=== PATIENT | female | born 1935 | race Caucasian/White ===

== ENCOUNTER → 2019-09-11 | Outpatient (CLI) | payer OTHER ==
[~2019-09-11] MED LIST: EVISTA PO; FLOMAX PO; LISINOPRIL40 MG PO; OXYBUTYNIN 5 MG5 M1 PO; PRAVACHOL40 MG PO
== END ==
LOC: M.RAD 11:00
PROVIDERS: ATTEND Internal Medicine
DX: M81.0 Age-related osteoporosis without current pathological fracture (principal); I35.0 Nonrheumatic aortic (valve) stenosis; I10 Essential (primary) hypertension; Z79.899 Other long term (current) drug therapy

== ENCOUNTER 2020-09-10 16:41 | Inpatient (IN) | payer OTHER ==
[~2020-09-10] VITALS: Ht 177.8 cm; Wt 103.7 kg
--- NOTE | ~2020-09-10 | EMS ---
[facility] [address] [place] [address] EMS Patient Care Report Name: JULIA LOVE Room: [place] [address] ADM IN [facility]#: [id number] Admission: 09/10/20 Attend Phys: Tere Clark Discharge: Date of : 37 Report #: [id number] THIS REPORT FOR: //name// Report Transmitted: 09/10/2020 16:52 EMS Care Summary [facility] Incident [id number] @ 09/10/2020 15:49 Incident Location [address] [place] [address] Patient JULIA LOVE Female, 84 Years 1935 Patient Address [address] [place] [address] Patient History Hypertension (HTN),Pacemaker/AICD, Patient Allergies Penicillin allergy,Bactrim, Chief Complaint Patient has no direct complaint Disposition Transported No Lights/[place] [facility] Reason Unknown Problem/Person Down Transported To [facility] Narrative Dispatched to address noted for an unknown problem. [facility] where en route and on scene at time noted. Arrived and found the family friends on the scene. They called 911 after finding the patient laying on the floor near the kitchen. Patient was alert and [facility] [address] [place] [address] EMS Patient Care Report Name: JULIA LOVE Room: [address] IN [facility]#: [id number] Admission: 09/10/20 Attend Phys: Tere Clark Discharge: Date of : 37 Report #: [id number] appeared oriented. She stated that she had been vomiting yesterday and not feeling well. Today she stated she bent over and then tripped and fell to the floor. Patient denied hitting her head or losing consciousness. Patient denied blood thinner use as well and did not have any obvious injuries noted. Patient felt cold and had urine and watery fecal matter noted on her clothes all the way to her shoulders. Patient stated she was only on the ground for 20 minutes but it appeared to have been longer. Patient agreed to treatment and transport and was moved to the stretcher via jarod line mover. Patient did not have any complaints at this time but appeared too weak to walk. Once in the ambulance, vitals where taken at time noted. 12 lead ECG obtained and IV was attempted. [facility] was chosen for care. Patients skin was now warming up and it could have been due to the air conditioning unit on the floor near the patient. While en route, no major complaints or changes where noted. Vitals where taken at time noted. Radio report given at time noted. Arrived and took patient to room 18. Patient was moved to bed and RN was given verbal report. RN signed for patient and patient signed for self. END REPORT EMT-P Jose Elias Jett Initial Vitals @16:05P: 98,R: 16,BP: 144/99,GCS: 15,Glucose: 96,SpO2: 97,Revised Trauma: 12, @16:30P: 98,R: 16,BP: 151/100,GCS: 15,SpO2: 97,Revised Trauma: 12, Assessments @16:21MENTAL:Person Oriented,Time Oriented,Place Oriented,Event Oriented,SKIN:Cold,HEENT:Head/Face: No Abnormalities,LUNG SOUNDS:General: No Abnormalities,ABDOMEN:General: No Abnormalities,PELVIS//GI:Incontinence,EXTREMITIES:Left Arm: No Abnormalities,Right Arm: No Abnormalities,Left Leg: No Abnormalities,Right Leg: No Abnormalities,PULSE:NEURO:No Abnormalities, Impression Generalized Weakness Procedures @16:16 cc (20 ga) Site: Antecubital-LeftResponse: UnchangedFailed Timeline 15:49,Call Received 15:49,[place] [address] EMS Patient Care Report Name: JULIA LOVE Room: [address] IN [facility]#: [id number] Admission: 09/10/20 Attend Phys: Tere Clark Discharge: Date of : 37 Report #: [id number] 15:52,En Route 15:54,Initial Responder On Scene 15:54,On Scene 15:55,At Patient 16:05,BP: 144/99 M,PULSE: 98,RR: 16 R,SPO2: 97 Ox,ETCO2: ,B,PAIN: ,GCS: 15, 16:16,Depart Scene 16:16, cc 20 ga Site: Antecubital-Left,Response: UnchangedFailed, 16:30,BP: 151/100 M,PULSE: 98,RR: 16 R,SPO2: 97 Ox,ETCO2: ,BG: ,PAIN: ,GCS: 15, 16:39,At Destination 16:45,Transfer Patient 16:52,Call Closed 17:16,In District Disclaimer v1.1 Copyright 2020 [employer] This EMS Care Summary contains data elements from the applicable legal record (which may be displayed differently). It is designed to provide pertinent information for the following purposes: continuity of care, clinical quality, and state data reporting. The complete legal record is available to ED staff and administrators of the receiving hospital in [employer] Patient Tracker. All data is provided "as is."
[2020-09-10 16:46] VITALS: BP 149/132
[2020-09-10 17:12] LABS: HEMATOCRIT 49.4 % (37.0-47.0); HEMOGLOBIN 17.1 gm/dL (12.0-15.0); MCH 31.2 pg (26.0-34.0); MCHC 34.6 g/dL (28.0-37.0); MPV 8.5 fl. (7.2-11.1); NUCLEATED RBCS 0 /100WBC; PLATELET COUNT* 178 thou/uL (150-400); RBC 5.49 mil/uL (4.20-5.00); RDW-CV 14.1 % (10.5-14.5); WBC 12.5 thou/uL (4.0-11.0)
[2020-09-10 17:34] LABS: CALCIUM 9.6 mg/dL (8.5-10.1); CREATININE 0.8 mg/dL (0.6-1.3); POTASSIUM 3.3 mmol/L (3.5-5.1)
[2020-09-10 17:39] LABS: ABSOLUTE LYMPHOCYTES 1.4 thou/uL (0.8-5.3); ABSOLUTE MONOCYTES 0.3 thou/uL (0.0-1.2); ABSOLUTE NEUTROPHILS 10.9 thou/uL (1.6-8.1); ATYPICAL LYMPHS 2 %; PLATELET ESTIMATE ADEQUATE
[2020-09-10 17:47] LABS: ALBUMIN 3.7 g/dL (3.4-5.0); TOTAL BILIRUBIN 1.2 mg/dL (<0.1-1.0); TOTAL PROTEIN 7.7 g/dL (6.4-8.2)
--- NOTE | 2020-09-10 18:04 | NUR ---
PT GIVEN DINNER TRAY AT THIS TIME.
[2020-09-10 20:12] VITALS: BP 129/93
[2020-09-10 21:00] VITALS: BP 118/78
[2020-09-10 22:48] LABS: URINE BILIRUBIN NEGATIVE (Negative); URINE BLOOD 1+ (Negative); URINE CLARITY CLEAR; URINE COLOR YELLOW; URINE GLUCOSE-RANDOM NEGATIVE (Negative); URINE LEUKOCYTES-REFLEX NEGATIVE (Negative); URINE NITRITE-REFLEX NEGATIVE (Negative); URINE PROTEIN 1+ (Negative); URINE SPECIFIC GRAVITY >= 1.030 (1.005-1.030); URINE UROBILINOGEN 0.2 E.U./dl (0.2-1.0)
[2020-09-10 22:52] LABS: URINE KETONES 3+ (Negative)
[2020-09-10 22:59] LABS: ACETEST (KETONE CONFIRMATORY) Moderate (Negative)
[2020-09-10 23:22] LABS: HYALINE CASTS 0-3 Few /LPF (None Seen); SQUAMOUS 0-3 Few /LPF (0-3); URINE RBC 3-10 Few /HPF (0-2); URINE WBC-REFLEX 0-5 Rare /HPF (0-5)
[2020-09-10 23:23] LABS: BACTERIA-REFLEX 1-9 Few /HPF (None Seen); CRYSTALS None Seen /LPF (None Seen)
[2020-09-10 23:57] VITALS: BP 96/60
[2020-09-11 03:47] VITALS: BP 105/67
[2020-09-11 05:40] LABS: CALCIUM 8.9 mg/dL (8.5-10.1); POTASSIUM 3.7 mmol/L (3.5-5.1)
[2020-09-11 06:18] LABS: ABSOLUTE MONOCYTES 0.7 thou/uL (0.0-1.2); ABSOLUTE NEUTROPHILS 8.1 thou/uL (1.6-8.1); BASOPHILS 0.2 %; HEMATOCRIT 44.1 % (37.0-47.0); HEMOGLOBIN 15.3 gm/dL (12.0-15.0); LYMPHOCYTES 9.9 %; MCH 31.1 pg (26.0-34.0); MCHC 34.6 g/dL (28.0-37.0); MCV 89.9 fL (80.0-100.0); MONOCYTES 7.4 %; NUCLEATED RBCS 0 /100WBC; PLATELET COUNT* 184 thou/uL (150-400); POLYS 82.5 %; RBC 4.91 mil/uL (4.20-5.00); RDW-CV 14.1 % (10.5-14.5); WBC 9.8 thou/uL (4.0-11.0)
[2020-09-11 08:00] VITALS: BP 116/54
--- NOTE | 2020-09-11 09:40 | NUR ---
patient currently in chair, talking to oncologist.
[2020-09-11 12:00] VITALS: BP 84/54
--- NOTE | 2020-09-11 12:18 | NUR ---
patient resting in room, BP was low per tech, doctor ordered 1 L bolus. Patient asymptomatic. Will continue to monitor.
[2020-09-11 13:30] VITALS: BP 133/69
[2020-09-11 15:37] VITALS: BP 95/60
--- NOTE | 2020-09-11 19:57 | NUR ---
Report given to shift boss nurse. bus driver/monitor on, RA, resting in bed with all belongings and call light within reach. Meds given per MAY.
[2020-09-11 20:00] VITALS: BP 104/56
[2020-09-12] VITALS (7 sets, daily range): BP systolic 86–131; BP diastolic 42–89
[2020-09-12 10:23] LABS: HEMATOCRIT 39.7 % (37.0-47.0); HEMOGLOBIN 13.7 gm/dL (12.0-15.0); MCH 31.4 pg (26.0-34.0); MCHC 34.6 g/dL (28.0-37.0); MCV 90.7 fL (80.0-100.0); MPV 8.6 fl. (7.2-11.1); RBC 4.38 mil/uL (4.20-5.00); RDW-CV 14.7 % (10.5-14.5)
[2020-09-12 10:37] LABS: CALCIUM 8.4 mg/dL (8.5-10.1); CREATININE 1.1 mg/dL (0.6-1.3); POTASSIUM 3.6 mmol/L (3.5-5.1)
--- NOTE | 2020-09-12 11:44 | EKG ---
[place] [address] ELECTROCARDIOGRAM REPORT Name: JULIA LOVE Room: [address] ADM IN M.R.#: [id number] Admission: 09/10/20 Attend Phys: Adolfo Valentine Discharge: Date of : 37 Date of Service: 09/10/20 174 Report #: [id number] THIS REPORT FOR: //name// [facility] ED Test Date: 2020-09-10 Test Time: 17:42:17 Pat Name: JULIA LOVE Department: Room: [facility] Gender: F Betting Clerk: JAMES : 1935 Requested By: Luis Manuel Gunter Order Number: [id number] MD: Parviz Abreu Measurements Intervals [place] Rate: 101 P: 197 UT: 157 QRS: -66 QRSD: 163 T: 116 QT: 447 QTc: 580 Interpretive Statements Atrial sensing with ventricular pacing No further analysis attempted due to paced rhythm Compared to ECG 08/02/2009 12:03:06 Ventricular pacing now present Electronically Signed On 09-12-2020 11:43:44 CDT by Parviz Abreu [email or web address] <ELECTRONICALLY SIGNED> By: Parviz Abreu MD, FAC 09/12/20 1143 1742 1742 Parviz Abreu MD, [facility] /EPI
--- NOTE | 2020-09-12 16:32 | NUR ---
Orthostatic vitals taken this am. laying - BP - 78/38, P - 83 sitting - BP - 86/48, P - 107 standing - BP - 61/41, P - 107
--- NOTE | 2020-09-12 19:09 | NUR ---
Patient resting in room in chair, with call light and personal belongings within reach. Unable to get new IV access after 3 tries. IV fluids on hold for now. Patient states no pain at this time. Report given to maintenance supervisor 2nd shift nurse.
[2020-09-13] VITALS (8 sets, daily range): BP systolic 99–129; BP diastolic 42–73
--- NOTE | 2020-09-13 05:52 | NUR ---
PT SLEPT MOST OF SHIFT. ASSESSMENT DOCUMENTED. MEDS GIVEN PER E-MAR. IV PATENT. NO REPORTS OF PAIN. NAUSEA MEDS GIVEN PER E-MAR WITH RELIEF. FALL PRECAUTIONS IN PLACE. PT ABLE TO MAKE NEEDS KNOWN. WILL CONTINUE WITH PLAN OF CARE.
--- NOTE | 2020-09-13 10:42 | EKG ---
[place] [address] ELECTROCARDIOGRAM REPORT Name: JULIA LOVE Room: [address] ADM IN M.R.#: [id number] Admission: 09/10/20 Attend Phys: Adolfo Valentine Discharge: Date of : 37 Date of Service: 09/11/20 0640 Report #: [id number] THIS REPORT FOR: //name// [facility] Test Date: 2020-09-11 Test Time: 06:40:00 Pat Name: JULIA LOVE Department: Room: [address] Gender: F Event Designer: JOSE : 1935 Requested By: Jimenez Pollock Order Number: [id number] Reading MD: El Anne Measurements Intervals [place] Rate: 97 P: 184 HI: 165 QRS: -56 QRSD: 151 T: 132 QT: 417 QTc: 530 Interpretive Statements Ventricular-paced rhythm No further analysis attempted due to paced rhythm Compared to ECG 09/10/2020 17:42:17 No significant changes Electronically Signed On 09-13-2020 10:42:34 CDT by El Anne [email or web address] <ELECTRONICALLY SIGNED> By: El Anne MD, [facility] 09/13/20 1042 0640 0640 El Anne MD, [facility] /EPI
--- NOTE | 2020-09-13 12:34 | NUR ---
CM ASSESSMENT: PT A&O. PT NORMALLY INDEPENDENT WITH ADL'S ACTIVE AND DRIVES. PT RESIDES AT HOME ALONE. PT USES 0 DME, BUT OWNS A WALKER AND CANE. PT HAS 0 HX OF HH. PT HAS PAST HX OF SNF 'MANY YEARS AGO'. PT HAS PAST HX OF OUTPATIENT P.T. AT [facility] IN [place]. PT MAY BENEFIT FROM HH AT D/C AND PT MAY BE READY TO D/C TOMORROW. CM TO [facility]. CM WILL REMAIN AVAILABLE TO ASSIST AND FOLLOW NEEDED.
--- NOTE | 2020-09-13 18:33 | CON ---
[facility] [address] [place] [address] CONSULTATION Name: JULIA LOVE Room: [address] IN M.R.#: [id number] Admission: 09/10/20 Attend Phys: Tere Clark Discharge: Date of : 37 Report #: [id number] THIS REPORT FOR: cc: Eugene Kingsley MD, David L. MD Liston, Michael J. MD [facility] ~ DOC #: [id number] cc: Rachel Deluca NP, MD Parviz Alaniz MD CARDIOLOGY CONSULTATION INDICATION: Elevated troponin. HISTORY OF PRESENT ILLNESS: The patient is a very pleasant 84-year-old white female with history of transcutaneous aortic valve replacement in 2014 for severe aortic stenosis. At that time, the patient had placement of a dual chamber pacemaker for complete heart block. Catheterization prior to TAVR showed no obstructive coronary artery disease. The patient has been followed on a regular basis through the Cardiology Clinic at since that time. The patient reports falling at home yesterday. The patient heard her dog make a loud bark and sound. She got up to go investigate and tripped over a shoe on her floor. She fell to the floor without significant injury, but was unable to get back up. She reports that she laid on the floor for at least a half an hour. She had nausea and vomiting and urinary incontinence. The patient reports that a gnosticist member arrived after being unable to get a hold of her on the phone and found her on the floor. She called an ambulance and the patient was ultimately transferred to the hospital for further evaluation. Through this process, the patient denies any chest pain, tightness or pressure. She was not having diaphoresis. There is no prior history of myocardial infarction. A 12-lead EKG showed sinus rhythm with ventricular pacing. Her initial troponin was 0.37. She was not having chest discomfort in the emergency room. Her troponins trended over time were 0.37, 0.36, 0.37 and 0.26. From review of outside records, it appears her last echocardiogram was in June of this year. This showed an ejection fraction of 50%, paradoxic septal motion presumably from paced rhythm, normally functioning transcutaneous aortic valve with a gradient of 2.1 meters per second. She has grade II diastolic dysfunction. PAST MEDICAL HISTORY: 1. Status post transcutaneous aortic valve replacement in 2014 for severe aortic stenosis. 2. Complete heart block, status post dual [place] [address] CONSULTATION Name: JULIA LOVE Room: [address] IN [facility]#: [id number] Admission: 09/10/20 Attend Phys: Tere Clark Discharge: Date of : 37 Report #: [id number] 3. Hypertension. 4. Hyperlipidemia with last LDL cholesterol of 76. 5. Obesity. PAST SURGICAL HISTORY: 1. Bilateral cataract surgery. 2. Tonsillectomy remotely. FAMILY HISTORY: Noncontributory. SOCIAL HISTORY: The patient does not smoke. She drinks alcohol rarely. REVIEW OF SYSTEMS: A 14-point review of systems is positive for arthralgias and joint pain. She reports urinary frequency and urgency. There is a history of heart murmur. A 14-point review of systems otherwise unremarkable. PHYSICAL EXAMINATION: VITAL SIGNS: Blood pressure 133/69, pulse presently 75. GENERAL: This is a pleasant elderly female in no distress. Mood and affect appropriate. HEENT: Extraocular muscles intact. Mucous membranes are moist. NECK: Examination of the neck shows no jugular venous distention. There is a cardiac murmur radiating to the carotids bilaterally. CHEST: Reveals clear lung suarez without wheezes or rales. HEART: Reveals a regular rhythm with a II/ systolic ejection murmur heard best at the right upper sternal border. I do not appreciate gallop. ABDOMEN: Reveals normal bowel sounds. The abdomen is soft and nontender. EXTREMITIES: Show trace to 1+ ankle edema with some chronic skin changes noted. SKIN: Dry. LABORATORY DATA: Reviewed. Sodium 137, potassium 3.7, chloride 103, bicarbonate 29, BUN 26, creatinine 1.0, serum glucose 108. Troponin presently 0.26 and otherwise as outlined above. NT-proBNP 3201. Coags are within normal limits. White blood cell count 9.8, hemoglobin 15.3, platelet count 184,000. Chest x-ray shows previous surgical changes noted. No acute cardiopulmonary process noted. A 12-lead EKG shows sinus rhythm with ventricular pacing. IMPRESSION AND RECOMMENDATIONS: 1. Elevated troponins, likely a type 2 myocardial infarction due to cardiac strain. The patient is not having any symptoms to suggest acute coronary syndrome. At this point in time, I do not recommend further invasive cardiac [address] [address] CONSULTATION Name: JULIA LOVE Room: [address] IN [facility]#: [id number] Admission: 09/10/20 Attend Phys: Tere Clark Discharge: Date of : 37 Report #: [id number] evaluation. We will follow clinically. 2. Status post transcutaneous aortic valve replacement. Echocardiogram in June of this year showed the valve to be normally functioning. Follow up as outpatient as scheduled. 3. Grade II diastolic dysfunction. The patient has mildly elevated NT-proBNP. Troponin was also minimally elevated. She likely has mild acute exacerbation of chronic diastolic heart failure. 4. Hypertension. Blood pressure adequately controlled at present. 5. Dyslipidemia. She has been fairly well controlled on current dose of pravastatin. We will continue as outlined above. 6. Fall at home. It sounds a purely mechanical due to tripping over her shoe. There are no symptoms to suggest any type of syncope at this time. We will follow clinically. 7. History of complete heart block, status post dual chamber pacemaker placement. The pacemaker appears to be functioning normally at this time. She follows with remote interrogations monthly through her primary cardiac service. At this point in time, the patient appears stable. MD MONTRELL MéndezL/ARJUN <ELECTRONICALLY SIGNED> By: Parviz Abreu MD, FACC 09/13/20 1833 1317 [id number] Abreu MD, FACC /nt
[2020-09-14] VITALS (10 sets, daily range): BP systolic 106–143; BP diastolic 43–69
[2020-09-14 04:44] LABS: HEMATOCRIT 32.9 % (37.0-47.0); MCH 31.5 pg (26.0-34.0); MCHC 34.6 g/dL (28.0-37.0); MPV 8.7 fl. (7.2-11.1); RBC 3.61 mil/uL (4.20-5.00); RDW-CV 14.7 % (10.5-14.5); WBC 4.4 thou/uL (4.0-11.0)
[2020-09-14 04:48] LABS: HEMOGLOBIN 11.4 gm/dL (12.0-15.0)
[2020-09-14 05:02] LABS: ALBUMIN 2.3 g/dL (3.4-5.0); CALCIUM 8.4 mg/dL (8.5-10.1); CREATININE 0.8 mg/dL (0.6-1.3); POTASSIUM 3.9 mmol/L (3.5-5.1); TOTAL BILIRUBIN 0.4 mg/dL (<0.1-1.0); TOTAL PROTEIN 5.1 g/dL (6.4-8.2)
[2020-09-14] MEDS ORDERED: LISINOPRIL20 MG PO (08:54)
--- NOTE | 2020-09-14 10:37 | NUR ---
ASSUMED CARE OF PT THIS AM AROUND 0715- CARIDAC MONITOR IN PLACE ORDERED, TRACING V-PACED- UPON ASSESSMENT PT NOTED TO BE RESTING IN BED- PT UP TO BED ISDE RECLINER THIS AM WITH PT, TOLERATING WELL- PT A&O X4-CONT OF B/B- LCTA, RESP EVEN AND UN-LABORED- VSS, O2 SAT 94% ON RA- ABD SOFT/ROUND/NON-TENDER, BS X4 QUADS- LAST BM REPORTED 09/13/20- IV NOTED TO RIGHT HAND INTACT AND SL- GOOD PO INTAKE NOTED THIS AM WITH BREAKFAST- PT DENIES ANY C/O PAIN- CALL LIGHT AND PERSONAL BELONGINGS WITH IN REACH- ALL NEEDS MET AT THIS TIME
--- NOTE | 2020-09-14 10:46 | NUR ---
THIS [employer] MAINTENANCE CONSULTANT IS IN AGREEMENT WITH THE EVALUATION AND RECOMMENDATIONS BY ODESSA LANDRY FOR THIS DAY. JONA WUT
--- NOTE | 2020-09-14 12:46 | NUR ---
PHYSICIAN INFORMS OF PLAN FOR PT TO D/C TODAY WITH HH. [facility] REP TO SEE PT TODAY TO ASSESS AND DISCUSS HH. CM FAXED PT'S FACESHEET, H&P, AND D/C HH ORDERS TO [facility]. CM WILL REMAIN AVAILABLE TO ASSIST AND FOLLOW NEEDED. [facility] PHONE: [phone] FAX: [phone]
--- NOTE | 2020-09-14 14:59 | NUR ---
[facility] Bedside Visit Note: Met with patient and discussed her priesent illness and need for HH [place] is [place]. Patient does feel HH would be of a help to her as she is worried about the blood suspedted blood pressure drop that caused her to pass out. Discussed the change in her med, Lisinopril. She will be able to get that picked up. Reported all to hospital case sealer, Vida and faxed initial paperwork.
== END 2020-09-14 15:00 | disposition home health service (06) | DRG 564 ==
LOC: M.ERS 16:41 → M.TBA-ER 17:34 → M.2W 17:34
PROVIDERS: Emergency Medicine; Internal Medicine; ADMIT Internal Medicine; ATTEND Internal Medicine
DX: T79.6XXA Traumatic ischemia of muscle, initial encounter (principal); I21.A1 Myocardial infarction type 2; I50.33 Acute on chronic diastolic (congestive) heart failure; I11.0 Hypertensive heart disease with heart failure; E78.5 Hyperlipidemia, unspecified; E66.9 Obesity, unspecified; Z20.822 Contact with and (suspected) exposure to COVID-19; Z98.42 Cataract extraction status, left eye; Z98.41 Cataract extraction status, right eye; Z88.8 Allergy status to other drugs, medicaments and biological substances; Z95.2 Presence of prosthetic heart valve; Z95.0 Presence of cardiac pacemaker; Z79.899 Other long term (current) drug therapy; W18.39XA Other fall on same level, initial encounter; Y93.89 Activity, other specified; Y92.098 Other place in other non-institutional residence as the place of occurrence of the external cause; Y99.8 Other external cause status; Z68.32 Body mass index [BMI] 32.0-32.9, adult